=== PATIENT | male | born 1975 | race Caucasian/White ===

== ENCOUNTER 2023-09-26 06:30 | Emergency (ER) | payer SELFPAY ==
[2023-09-26 07:33] LABS: INFLUENZA A NAA NEGATIVE (NEGATIVE); INFLUENZA B NAA NEGATIVE (NEGATIVE); RESPIRATORY SYNCYTIAL VIR NAA NEGATIVE (NEGATIVE)
[2023-09-26 07:34] LABS: CORONAVIRUS COVID-19 NAA POSITIVE (NEGATIVE)
== END 2023-09-26 09:35 | disposition home or self-care (01) ==
LOC: FB.ED 06:30
DX: U07.1 COVID-19 (principal); B20 Human immunodeficiency virus [HIV] disease; J45.31 Mild persistent asthma with (acute) exacerbation; F17.200 Nicotine dependence, unspecified, uncomplicated; Z79.899 Other long term (current) drug therapy
CPT/HCPCS: 0241U; 99283